=== PATIENT | male | born 1970 | race Caucasian/White ===

== ENCOUNTER 2019-06-21 14:30 | Outpatient (CLI) | payer OTHER ==
[~2019-06-21 14:30] MED LIST: FENOFIBRIC ACID35 MG PO; GABAPENTIN100 MG ORAL; LANTUS SOL100 UNIT/1 SUBQ; TRIBENZOR 20-51 EACH ORAL; ZOFRAN ODT4 MG ORAL
--- NOTE | 2019-06-21 14:31 | Diagnostic Imaging Report ---
Indication:Elevated Bun and Creatinine. Technique: Grayscale and duplex Doppler imaging of the kidneys performed. Comparison: None Findings: The size, contour, and echogenicity of both kidneys are within normal limits. There is no hydronephrosis.. The right kidney measures 10.9 cm. in length. The left kidney measures 11.5 cm. in length. The IVC is patent. Urinary bladder shows mild wall thickening. IMPRESSION: Negative ultrasound the kidneys. Urinary bladder wall thickening. Consider cystitis.
== END 2019-06-21 16:30 | disposition home or self-care (01) ==
LOC: ULS 14:30
DX: R79.0 Abnormal level of blood mineral (principal)
CPT/HCPCS: 76770